=== PATIENT | male | born 1940 | race Caucasian/White ===

== ENCOUNTER → 2020-04-23 | Outpatient (CLI) | payer BC ==
[2020-02-10 11:40] VITALS: BP 163/79
[~2020-04-23] MED LIST: AMLO5TAB10 PO; TAMS0.4C97 PO
--- NOTE | 2020-04-23 11:49 | RAD ---
MR#: [id number] Date of Study: 04/23/2020 Ordering Physician: MAY FINN, Referring Physician: CLEVELAND ARELLANO Tech: RT Ryann (R) (N) APPROVED REPORT Test Type: Exercise Stress Nurse/Tech: Claudia GROSS Test Indications: HTN, CP Cardiac History: HTN, See EMR Medications: ASA daily, See EMR Medical History: See EMR Resting ECG: SR Resting Heart Rate: 58 bpm Resting Blood Pressure: 147/77mmHg Pretest Chest Pain: No chest pain Nurse/Tech Notes Lungs with fine crackles in the left upper lobe, other mckeon lungs CTA. Heart tones regular. Consent: The procedure was explained to the patient in lay terms. Informed consent was witnessed. Beau eout was entered into [facility] [employer]. History and Stress Test performed by [facility] Stress Symptoms Dyspnea POST EXERCISE Reason for Termination: Reached target heart rate Target HR: Yes Max HR: 132 bpm 111% of Maximum Predicted HR: 120 bpm Exercise duration: 3:37 min:sec, 2 Stage Exercise capacity: 7.0METs Max Blood Pressure: 178/77mmHg Blood Pressure response to exercise: Normal blood pressure response during stress. Heart Rate response to exercise: wnl Chest Pain: No. Arrhythmia: No. ST Change: No. INTERPRETATION Stress EKG Conclusion: Baseline EKG showed sinus rhythm. No ischemic changes at peak stress. No arr hythmias. Imaging Protocol IMAGE PROTOCOL: Rest Tc-99m/stress Tc-99m 1 day Rest: Stress: Viability: Radiopharm.Tc99m EznovxstoQs60y Sestamibi Akjm17fLr 31.6mCi Duration 15min. 10min. Img Date 04/23/2020 04/23/2020 Inj-Img [id number]. 60min. Rest Admin Site:IV - Right AntecubitalAdministrator:[facility] Stress Admin Site: IV - Right AntecubitalAdministrator: [facility] STRESS DATA End Diast. Vol.126.0mlAv. Heart Rate61.0bpm End Syst. Vol.41.0mlCO Index BSA0.0L/min Myocardial Lkdk479.0gEject. Jxzmqzph44.0% Stress Rates Pk. Fill Rate1.95EDV/secLVtime Pk. Fill 123.58msec Pk. Empty Rate3.14ESV/secLVtime Pk. Fviek434.03msec 1/3 Pk. Fill1.42EDV/sec Stress Scores Regional WT0.00Summed WT3.00 Regional WM0.00Summed WM1.00 Study quality was good. Left Ventricular size was Normal at Rest and Stress. Lung uptake was . Left Ventricular ejection fraction is 63%. The rest and stress images show normal perfusion, normal contraction and thickening. LV Perf. Quant 17 Seg. SSS1.00 17 Seg. SRS1.00 17 Seg. SDS1.00 Stress Defect Extent (% LAD)0.00Rest Defect Extent (% LAD)0.00Rev. Defect Extent (% LAD)0.00 Stress Defect Extent (% LCX) 0.00Rest Defect Extent (% LCX)6.30Rev. Defect Extent (% LCX)0.00 Stress Defect Extent (% RCA)0.00Rest Defect Extent (% RCA)0.00Rev. Defect Extent (% RCA)0.00 Stress Defect Extent (% FREDERICK)0.00Rest Defect Extent (% FREDERICK)2.40Rev. Defect Extent (% FREDERICK)0.00 Conclusion 1. Treadmill exercise cardioisotope stress test did not show any evidence of ischemia or infarct. 2. Normal left ventricular systolic function with ejection fraction calculated at 63%. 3. Patient had poor exercise tolerance. Low risk for cardiac events. Signed by : Yonatan Walton, Electronically Approved : 04/23/2020 11:48:43
== END | disposition home or self-care (01) ==
LOC: NM 08:06
PROVIDERS: ATTEND Internal Medicine Cardiovascular Disease
DX: I10 Essential (primary) hypertension (principal); R07.9 Chest pain, unspecified
CPT/HCPCS: 78452; 93017; A9500

== ENCOUNTER 2020-12-15 07:26 | Emergency (ER) | payer BC ==
[~2020-12-15] VITALS: Ht 180.3 cm; Wt 90.9 kg
[~2020-12-15 07:26] MED LIST changes: +AMLO-186 PO; -AMLO5TAB10 PO
--- NOTE | 2020-12-15 07:54 | PHYS DOC ---
Past Medical History Past Medical History: Cancer, Hypertension Additional Past Medical Histor: BPH Past Surgical History: Appendectomy, Tonsillectomy Additional Past Surgical Histo: skin cancer graft to nose Smoking Status: Former Smoker Alcohol Use: None Drug Use: None General Adult EDM: Chief Complaint: UPPER EXTREMITY PAIN HPI: HPI: Patient is a 80 year old male who presented to ER for evaluation of left elbow pain for 3 days. Patient denies any injury. Patient denies any cough or fever, no nausea vomiting. Patient also said he had a brief twist of chest pain but did not last long. Patient denies any abdominal pain. Patient denies any history of heart problem, denies any history of blood clot disorder. Patient is a former smoker. Patient has history of hypertension. Patient was evaluated here last year for chest pain, had a negative stress test done on April 2020. Patient also complained of right leg swelling for 1 month. The report of the nuclear stress test: Conclusion 1. Treadmill exercise cardioisotope stress test did not show any evidence of ischemia or infarct. 2. Normal left ventricular systolic function with ejection fraction calculated at 63%. 3. Patient had poor exercise tolerance. Low risk for cardiac events. Signed by : Amara Walton, Electronically Approved : 04/23/2020 11:48:43 DICTATED and SIGNED BY: AMARA WALTON MD DATE: 04/23/20 1031 Review of Systems: Review of Systems: Constitutional: Denies fever or chills. [] Eyes: Denies change in visual acuity. [] HENT: Denies nasal congestion or sore throat. [] Respiratory: Denies cough or shortness of breath. [] Cardiovascular: Positive for chest pain, right leg swelling. GI: Denies abdominal pain, nausea, vomiting, bloody stools or diarrhea. [] : Denies dysuria. [] Musculoskeletal: Denies back pain , positive for left elbow pain Integument: Denies rash. [] Neurologic: Denies headache, focal weakness or sensory changes. [] Endocrine: Denies polyuria or polydipsia. [] Lymphatic: Denies swollen glands. [] Psychiatric: Denies depression or anxiety. [] Heart Score: HEART Score for Chest Pain: HEART Score for Chest Pain Response (Comments) Value History Slighlty/Non-Suspicious 0 Age > 65 2 Risk Factors 1 or 2 Risk Factors 1 Troponin < Normal Limit 0 Total 3 Risk Factors: Risk Factors: DM, Current or recent (<one month) smoker, HTN, HLP, family history of CAD, obesity. Risk Scores: Score 0 - 3: 2.5% MACE over next 6 weeks - Discharge Home Score 4 - 6: 20.3% MACE over next 6 weeks - Admit for Clinical Observation Score 7 - 10: 72.7% MACE over next 6 weeks - Early Invasive Strategies Allergies: Allergies: Allergies Coded Allergies Type Severity Reaction Last Updated Verified No Known Drug Allergies 02/10/20 No Physical Exam: PE: Constitutional: Well developed, well nourished, no acute distress, non-toxic appearance. [] HENT: Normocephalic, atraumatic, bilateral external ears normal, oropharynx moist, no oral exudates, nose normal. [] Eyes: PERRLA, EOMI, conjunctiva normal, no discharge. [] Neck: Normal range of motion, no tenderness, supple, no stridor. [] Cardiovascular:Heart rate regular rhythm, no murmur [] Lungs & Thorax: Bilateral breath sounds clear to auscultation [] Abdomen: Bowel sounds normal, soft, no tenderness, no masses, no pulsatile masses. [] Skin: Warm, dry, no erythema, no rash. [] Back: No tenderness, no CVA tenderness. [] Extremities: The entire right leg is swollen, edematous, tender to palpation, pitting edema 2. Left elbow with full range of motion, hurt with certain movement. Neurologic: Alert and oriented X 3, normal motor function, normal sensory function, no focal deficits noted. [] Psychologic: Affect normal, judgement normal, mood normal. [] Current Patient Data: Labs: Laboratory Tests Test 12/15/20 07:55 White Blood Count 4.7 x10^3/uL Red Blood Count 4.75 x10^6/uL Hemoglobin 15.3 g/dL Hematocrit 44.5 % Mean Corpuscular Volume 94 fL Mean Corpuscular Hemoglobin 32 pg Mean Corpuscular Hemoglobin Concent 34 g/dL Red Cell Distribution Width 13.0 % Platelet Count 207 x10^3/uL Neutrophils (%) (Auto) 75 % Lymphocytes (%) (Auto) 16 % Monocytes (%) (Auto) 6 % Eosinophils (%) (Auto) 3 % Basophils (%) (Auto) 1 % Neutrophils # (Auto) 3.5 x10^3/uL Lymphocytes # (Auto) 0.7 x10^3/uL Monocytes # (Auto) 0.3 x10^3/uL Eosinophils # (Auto) 0.1 x10^3/uL Basophils # (Auto) 0.0 x10^3/uL Sodium Level 139 mmol/L Potassium Level 3.7 mmol/L Chloride Level 103 mmol/L Carbon Dioxide Level 26 mmol/L Anion Gap 10 Blood Urea Nitrogen 28 mg/dL Creatinine 0.8 mg/dL Estimated GFR (Cockcroft-Gault) 93.3 BUN/Creatinine Ratio 35 Glucose Level 162 mg/dL Calcium Level 9.1 mg/dL Magnesium Level 2.2 mg/dL Total Bilirubin 1.1 mg/dL Aspartate Amino Transf (AST/SGOT) 22 U/L Alanine Aminotransferase (ALT/SGPT) 29 U/L Alkaline Phosphatase 79 U/L Troponin I Quantitative < 0.017 ng/mL RA-Xmq-V-Type Natriuretic Peptide 49 pg/mL Total Protein 6.9 g/dL Albumin 3.6 g/dL Albumin/Globulin Ratio 1.1 Lipase 49 U/L Vital Signs: Vital Signs Date Time Temp Pulse Resp B/P (MAP) Pulse Ox O2 Delivery O2 Flow Rate FiO2 12/15/20 07:38 97.9 80 18 140/71 (94) 96 Room Air 97.9 EKG: EKG: EKG was done at 740, heart rate of 77 bpm, sinus rhythm, no ST segment elevation Radiology/Procedures: Radiology/Procedures: [][facility] [address] [place] [address] IMAGING REPORT Signed PATIENT: CELIO ELLIOTT ACCOUNT: [id number] : 1940 LOCATION: ER AGE: 80 SEX: M EXAM STATUS: REG ER ORD. PHYSICIAN: ARUN HOGAN DO REASON: right leg swelling for 1 month PROCEDURE: VENOUS LOWER EXTREMITY RIGHT Exam: US DPLX VENOUS EXTREMITY LOWER RT Indication: right leg swelling for 1 month Technique: Color-flow and pulsed wave duplex ultrasound with compression of venous structures of the right lower extremity. Comparison: None Available. Findings: Duplex ultrasound with compression of the deep venous structures of the right lower extremity from the common femoral vein through the popliteal vein is negative for DVT. The posterior tibial and peroneal veins are segmentally visualized and patent where seen. Normal venous waveforms and augmentation are noted throughout. Impression: No evidence for DVT in the right lower extremity. Electronically signed by: Freda Herrera MD (12/15/2020 8:29 AM) [id number] DICTATED and SIGNED BY: FREDA HERRERA MD DATE: 12/15/20 [id number] [facility] [address] [place] [address] IMAGING REPORT Signed PATIENT: CELIO ELLIOTT ACCOUNT: [id number] : 1940 LOCATION: ER AGE: 80 SEX: M EXAM STATUS: REG ER ORD. PHYSICIAN: ARUN HOGAN DO REASON: chest pain PROCEDURE: PORTABLE CHEST 1V Exam performed: One view chest. Indication: Reason: chest pain / Spl. Instructions: / History: Date of Service: 12/15/2020 7:53 AM Comparison: One view chest from 02/10/2020. Single AP upright portable view chest findings: Cardiomediastinal silhouette is stable. Pulmonary vascularity is unremarkable. No acute infiltrates, effusion or pneumothorax is detected. The bony structures are normal. Impression: No acute cardiopulmonary process is detected. Electronically signed by: Marguerite Us MD (12/15/2020 8:06 AM) [id number] DICTATED and SIGNED BY: MARGUERITE US MD DATE: 12/15/20 [id number] 0 Course & Med Decision Making: Course & Med Decision Making Pertinent Labs and Imaging studies reviewed. (See chart for details) Patient is a 80-year-old male who presented to ER due to left elbow pain, some brief episodes of chest pain that lasted for few seconds 3 days ago. He denies any injury. He also has swelling to the right leg for 1 month. Work-up in ER did not show any acute problem. Patient had a negative nuclear stress test in April of last year. The pain in his left elbow probably arthritis Dragon Disclaimer: Dragon Disclaimer: This electronic medical record was generated, in whole or in part, using a voice recognition dictation system. Departure Departure Impression: Primary Impression: Arthritis of left elbow Disposition: DC HOME SELF CARE/HOMELESS Condition: STABLE Referrals: NAKIA ARREOLA MD (PCP) Follow up with your doctor as needed next week Patient Instructions: Arthritis, Nonspecific Additional Instructions: Thank you for visiting our Emergency Department. We appreciate you trusting us with your care. If any additional problems come up don't hesitate to return to visit us. Please follow up with your primary care provider so they can plan additional care if needed and know about the problem that you had. If symptoms worsen come back to the Emergency Department. Any concerning symptoms that start such as chest pain, shortness of air, weakness or numbness on one side of the body, running high fevers or any other concerning symptoms return to the ER. ARUN HOGAN DO Dec 15, 2020 07:54
[2020-12-15 08:05] LABS: BASO % 1 % (0-3); EOS # 0.1 x10^3/uL (0.0-0.7); EOS % 3 % (0-3); HEMATOCRIT 44.5 % (39.0-53.0); HEMOGLOBIN 15.3 g/dL (13.0-17.5); LYMPH # 0.7 x10^3/uL (1.0-4.8); LYMPH % 16 % (24-48); MEAN CORPUSCULAR HEMOGLOBIN 32 pg (25-35); MEAN CORPUSCULAR HGB CONC 34 g/dL (31-37); MEAN CORPUSCULAR VOLUME 94 fL (79-100); MONO # 0.3 x10^3/uL (0.0-1.1); MONO % 6 % (0-9); NEUT # 3.5 x10^3/uL (1.8-7.7); NEUT % 75 % (31-73); PLATELET COUNT 207 x10^3/uL (140-400); RED BLOOD COUNT 4.75 x10^6/uL (4.30-5.70); WHITE BLOOD COUNT 4.7 x10^3/uL (4.0-11.0)
--- NOTE | 2020-12-15 08:08 | RAD ---
Exam performed: One view chest. Indication: Reason: chest pain / Spl. Instructions: / History: Date of Service: 12/15/2020 7:53 AM Comparison: One view chest from 02/10/2020. Single AP upright portable view chest findings: Cardiomediastinal silhouette is stable. Pulmonary vascularity is unremarkable. No acute infiltrates, effusion or pneumothorax is detected. The bony structures are normal. Impression: No acute cardiopulmonary process is detected. Electronically signed by: Marguerite Us MD (12/15/2020 8:06 AM) [id number]
[2020-12-15 08:13] LABS: CALCIUM 9.1 mg/dL (8.5-10.1); CREATININE 0.8 mg/dL (0.7-1.3); GFR 93.3; POTASSIUM 3.7 mmol/L (3.5-5.1)
[2020-12-15 08:19] LABS: ALBUMIN 3.6 g/dL (3.4-5.0); ALBUMIN/GLOBULIN RATIO 1.1 (1.0-1.7); MAGNESIUM 2.2 mg/dL (1.8-2.4); TOTAL BILIRUBIN 1.1 mg/dL (0.2-1.0); TOTAL PROTEIN 6.9 g/dL (6.4-8.2)
--- NOTE | 2020-12-15 08:31 | RAD ---
Exam: US DPLX VENOUS EXTREMITY LOWER RT Indication: right leg swelling for 1 month Technique: Color-flow and pulsed wave duplex ultrasound with compression of venous structures of th e right lower extremity. Comparison: None Available. Findings: Duplex ultrasound with compression of the deep venous structures of the right lower extremi ty from the common femoral vein through the popliteal vein is negative for DVT. The posterior tibial and peroneal veins are segmentally visualized and patent where seen. Normal venous waveforms and augm entation are noted throughout. Impression: No evidence for DVT in the right lower extremity. Electronically signed by: Garrett Herrera MD (12/15/2020 8:29 AM) [id number]
--- NOTE | 2020-12-15 08:54 | EKG ---
[facility] [address] [place] [address] Test Date: 2020-12-15 Test Time: 07:39:16 Pat Name: CELIO SAMUELN Department: Room: Gender: M Personal Injury Law Specialist: : 1940 Requested By: ARUN HOGAN Order Number: [id number] Reading MD: Measurements Intervals [place] Rate: 77 P: 28 [place]: 154 QRS: -3 QRSD: 96 T: 35 QT: 370 QTc: 420 Interpretive Statements SINUS RHYTHM LEFTWARD AXIS OTHERWISE NORMAL ECG RI6.01 No previous ECG available for comparison
[2020-12-15 10:41] VITALS: BP 135/63
== END 2020-12-15 11:12 | disposition home or self-care (01) ==
LOC: ER 07:26
DX: M19.022 Primary osteoarthritis, left elbow (principal); R07.89 Other chest pain; R22.41 Localized swelling, mass and lump, right lower limb; I10 Essential (primary) hypertension; Z87.891 Personal history of nicotine dependence
CPT/HCPCS: 36415; 71045; 80053; 83690; 83735; 83880; 84484; 85025; 93005; 93971; 99285-25

== ENCOUNTER 2021-06-27 10:14 | Emergency (ER) | payer BC ==
[~2021-06-27] VITALS: Ht 176.5 cm; Wt 83.6 kg
[2021-06-27] MEDS ORDERED: IV NORMAL SALINE 1000ML BAG 1,000 ML IV ONE (10:45)
--- NOTE | 2021-06-27 10:58 | EKG ---
[facility] [address] [place] [address] Test Date: 2021-06-27 Test Time: 10:43:57 Pat Name: CELIO ELLIOTT Department: Room: Gender: M Cement Mason: : 1940 Requested By: MANJULA BUCKLEY Order Number: [id number] Reading MD: Measurements Intervals [place] Rate: 86 P: 1 [place]: 144 QRS: 0 QRSD: 90 T: 22 QT: 366 QTc: 441 Interpretive Statements SINUS RHYTHM LEFTWARD AXIS QRS(T) CONTOUR ABNORMALITY CONSISTENT WITH ANTEROSEPTAL INFARCT PROBABLY OLD ABNORMAL ECG RI6.02 No previous ECG available for comparison
[2021-06-27 11:08] LABS: BASO % 0 % (0-3); EOS % 0 % (0-3); HEMATOCRIT 44.3 % (39.0-53.0); HEMOGLOBIN 15.7 g/dL (13.0-17.5); LYMPH # 0.5 x10^3/uL (1.0-4.8); LYMPH % 14 % (24-48); MEAN CORPUSCULAR HEMOGLOBIN 33 pg (25-35); MEAN CORPUSCULAR HGB CONC 35 g/dL (31-37); MEAN CORPUSCULAR VOLUME 92 fL (79-100); MONO # 0.3 x10^3/uL (0.0-1.1); MONO % 8 % (0-9); NEUT # 2.8 x10^3/uL (1.8-7.7); NEUT % 78 % (31-73); PLATELET COUNT 114 x10^3/uL (140-400); RED BLOOD COUNT 4.83 x10^6/uL (4.30-5.70); RED CELL DISTRIBUTION WIDTH 13.5 % (11.5-14.5); WHITE BLOOD COUNT 3.7 x10^3/uL (4.0-11.0)
--- NOTE | 2021-06-27 11:08 | PHYS DOC ---
Past Medical History Past Medical History: Cancer, Hypertension Additional Past Medical Histor: BPH (MANJULA BUCKLEY APRN) Past Surgical History: Appendectomy, Tonsillectomy Additional Past Surgical Histo: skin cancer graft to nose,skin cancer removal (MANJULA BUCKLEY APRN) Smoking Status: Former Smoker Alcohol Use: None Drug Use: None (MANJULA BUCKLEY APRN) General Adult EDM: Chief Complaint: FLU SYMPTOM HPI: HPI: Patient is a 80 male presents to the emergency department complaining of a 20 pound weight loss over the past 2 weeks while being diagnosed with the COVID-19 virus. Patient reports he feels exhausted, denies chest pain, denies shortness of breath, denies fever or chills at home, denies nausea, vomiting, diarrhea or constipation. Patient reports his last normal BM was yesterday, reports he has not been drinking or eating as much because he has not been feeling well related to his COVID-19 virus. Patient reports he does not feel bad enough to come to the hospital however his daughter was worried and drove him here for evaluation. Patient denies allergies to medications, reports he takes a blood pressure medication at home. Sees Dr. Lazaro for primary care. Patient reports he has not received the COVID-19 vaccine series. Patient denies any other physical complaints or physical concerns. (MANJULA BUCKLEY APRN) Review of Systems: Review of Systems: 14 body systems of review of systems have been reviewed. See HPI for pertinent positives and negative responses, otherwise all other systems are negative, nonpertinent or noncontributory. Constitutional: Negative except as outlined in HPI above. Skin: Negative except as outlined in HPI above. Eyes: Negative except as outlined in HPI above. HENT: Negative except as outlined in HPI above. Respiratory: Negative except as outlined in HPI above. Cardiovascular: Negative except as outlined in HPI above. GI: Negative except as outlined in HPI above. : Negative except as outlined in HPI above. Musculoskeletal: Negative except as outlined in HPI above. Integument: Negative except as outlined in HPI above. Neurologic: Negative except as outlined in HPI above. Endocrine: Negative except as outlined in HPI above. Lymphatic: Negative except as outlined in HPI above. Psychiatric: Negative except as outlined in HPI above. (MANJULA BUCKLEY APRN) Heart Score: C/O Chest Pain: No Risk Factors: Risk Factors: DM, Current or recent (<one month) smoker, HTN, HLP, family history of CAD, obesity. Risk Scores: Score 0 - 3: 2.5% MACE over next 6 weeks - Discharge Home Score 4 - 6: 20.3% MACE over next 6 weeks - Admit for Clinical Observation Score 7 - 10: 72.7% MACE over next 6 weeks - Early Invasive Strategies (MANJULA BUCKLEY APRN) Current Medications: Current Medications Medications (Trade) Dose Ordered Sig/Maryam Start Time Stop Time Status Last Admin Dose Admin Sodium Chloride 1,000 ml @ 1,000 mls/hr 1X ONCE 06/27/21 10:45 06/27/21 11:44 06/27/21 10:51 1,000 MLS/HR (MANJULA BUCKLEY APRN) Allergies: Allergies: Allergies Coded Allergies Type Severity Reaction Last Updated Verified No Known Drug Allergies 02/10/20 No (MANJULA BUCKLEY APRN) Physical Exam: PE: Constitutional: Well developed, well nourished, no acute distress, non-toxic appearance. 80-year-old male in no apparent distress. HENT: Normocephalic, atraumatic. Oropharynx sticky, no deep tissue infectious process appreciated, patient speaking in normal voice tones. Eyes: Conjunctiva normal, no discharge. Neck: Normal range of motion, no stridor. Cardiovascular: No cyanosis appreciated, distal cap refill less than 2 seconds. Lungs & Thorax: Patient is in no respiratory distress, no audible adventitious lung sounds appreciated. Lung sounds clear to auscultate all lung thayer. Abdomen: Nontender, no abnormalities noted. Skin: Warm, dry, no erythema, no rash. Skin turgor brisk. Back: No tenderness, no deformities. Extremities: No tenderness, no cyanosis, no clubbing, ROM intact, no edema. Neurologic: Alert and oriented X 3, normal motor function, normal sensory function, no focal deficits noted. Psychologic: Affect normal, judgement normal, mood normal. (MANJULA BUCKLEY APRN) Current Patient Data: Vital Signs: Vital Signs Date Time Temp Pulse Resp B/P (MAP) Pulse Ox O2 Delivery O2 Flow Rate FiO2 06/27/21 10:35 98.6 88 20 154/70 (87) 95 Room Air 98.6 (MANJULA BUCKLEY APRN) EKG: EKG: EKG performed at 1043 by ED nursing staff shows a normal sinus rhythm without ectopy heart rate 86 bpm, [place] interval 0.144, QTc interval 0.441, no acute STEMI, no ACS, no acute ischemia appreciated, EKG interpreted by ED attending physician Dr. Fischer. (MANJULA BUCKLEY APRN) Radiology/Procedures: Radiology/Procedures: PATIENT: CELIO ELLIOTT ACCOUNT: [id number] : 1940 LOCATION: ER AGE: 80 SEX: M EXAM STATUS: REG ER ORD. PHYSICIAN: MANJULA BUCKLEY APRN REASON: Weakness, Covid positive PROCEDURE: CHEST AP ONLY EXAM: CHEST 1 VIEW History: Weakness, covid positive COMPARISON: 12/15/2020 TECHNIQUE: Single portable radiograph of the chest FINDINGS: The cardiac silhouette is unremarkable. Minimal bibasilar lung atelectasis or infiltrates. The costophrenic sulci are clear and well demarcated. IMPRESSION: Minimal bibasilar lung atelectasis or infiltrates Electronically signed by: Tao Mcfarland MD (06/27/2021 11:18 AM) [id number] (MANJULA BUCKLEY APRN) Course & Med Decision Making: Course & Med Decision Making Pertinent Labs and Imaging studies reviewed. (See chart for details) 80-year-old male, vital signs reviewed, presents to the emergency department with chief complaint of feeling weak since being diagnosed with a COVID-19 virus 2 weeks ago. Patient also reports a 20 pound weight loss. Patient reports his daughter brought him here for evaluation even though he does not feel bad enough to come to the hospital. Physical examination concerning for mild dehydration, will order cardiorespiratory work-up, reorder COVID-19 virus labs. Urinalysis assay. 1 L normal saline IV The patient's urine was not infected, EKG and cardiac labs unremarkable, patient's chest x-ray nonconcerning for acute respiratory process, patient's labs unremarkable. Patient's rapid COVID-19 test positive. Discussed with patient findings, continue to self quarantine at home, strict follow-up with primary care regarding weight loss. Patient is amenable to ED discharge planning. Discussed with the patient all findings and diagnostic testing as well as the need to follow-up with their primary care provider for further evaluation and treatment or return to the ED if any new or worsening symptoms. Strict return precautions were also discussed at length, the patient voiced understanding and agreement with the discharge planning. The patient was nontoxic in appearance, in no apparent distress, and hemodynamically stable at the time of disposition. (MANJULA BUCKLEY APRN) Course & Med Decision Making I have reviewed and agree with all pertinent clinical information above including history, exam, and recommendations. Arelis Fischer DO (ARELIS FISCHER DO) Sanam Disclaimer: Sanam Disclaimer: This electronic medical record was generated, in whole or in part, using a voice recognition dictation system. (MANJULA BUCKLEY APRN) Departure Departure Impression: Primary Impression: COVID-19 virus infection Additional Impression: Weight loss Disposition: 01 HOME / SELF CARE / HOMELESS Condition: GOOD Referrals: NAKIA LAZARO MD (PCP) Additional Instructions: You were seen today in the emergency department for ongoing symptoms related to your COVID-19 virus infection. You would also indicated that you have lost 20 pounds over the past 2 weeks. An extensive cardiorespiratory work-up was performed, there were no concerning findings for heart attack or pneumonia, your urine was not infected. A COVID-19 virus test was performed today, the test ind icates you still have the virus infection. Please continue to quarantine at home. As we discussed at length, please keep your fluid intake elevated, please follow-up with your primary care physician Dr. Lazaro related to your weight loss. Please return to the emergency department for worsening symptoms or other concerns. Thank you for visiting our Emergency Department. It was a pleasure taking care of you today in the emergency department and we appreciate you trusting us with your care. If any additional problems come up don't hesitate to return to visit us. Please follow up with your primary care provider so they can plan additional care if needed and know about the problem that you had. If symptoms worsen come back to the Emergency Department. Any concerning symptoms that start such as chest pain, shortness of air, weakness or numbness on one side of the body, running high fevers or any other concerning symptoms return to the ER. EMERGENCY DEPARTMENT GENERAL DISCHARGE INSTRUCTIONS Thank you for coming to [facility] Emergency Department (ED) today and trusting us with you care. We trust that you had a positive experience in our Emergency Department. If you wish to speak to the department management, you may call the Director at [phone]. YOUR FOLLOW UP INSTRUCTIONS ARE FOLLOWS: 1. Do you have a private Doctor? If you do not have a private doctor, please ask for a resource list of physicians or clinics that may be able to assist you with follow up care. 2. The Emergency Physicain has interpreted your x-rays. The X-Ray specialist will also review them. If there is a change in the findings, you will be notified in 48 hours when at all possible. 3. A lab test or culture has been done, your results will be reviewed and you will be notified if you need a change in treatment. ADDITIONAL INSTRUCTIONS AND INFORMATION: 1. Your care today has been supervised by a physician who is specially trained in emergency care. Many problems require more than one evaluation for a complete diagnosis and treatment. We recommend that you schedule your follow up appointment as recommended to ensure complete treatment of you illness or injury. If you are unable to obtain follow up care and continue to have a problem, or if your condition worsens, we recommend that you return to the ED. 2. We are not able to safely determine your condition over the phone nor are we able to give sound medical advice over the phone. For these safety reasons, if you call for medical advice we will ask you to come to the ED for further evaluation. 3. If you have any questions regarding these discharge instructions please call the ED at [phone]. SAFETY INFORMATION: In the interest of safety, wellness, and injury prevention; we encourage you to wear your sealbelt, if you smoke; quite smoking, and we encourage family to use a protective helmet for bicycling and other sporting events that present an increased risk for head injury. IF YOUR SYMPTOMS WORSEN OR NEW SYMPTOMS DEVELOP, OR YOU HAVE CONCERNS ABOUT YOUR CONDITION; OR IF YOUR CONDITION WORSENS WHILE YOU ARE WAITING FOR YOUR FOLLOW UP APPOINTMENT; EITHER CONTACT YOUR PRIMARY CARE DOCTOR, THE PHYSICIAN WHOSE NAME AND NUMBER YOU WERE GIVEN, OR RETURN TO THE ED IMMEDIATELY. MANJULA BUCKLEY APRN Jun 27, 2021 11:08 ARELIS FISCHER DO Jun 27, 2021 15:21
[2021-06-27 11:15] LABS: CALCIUM 8.1 mg/dL (8.5-10.1); CREATININE 1.1 mg/dL (0.7-1.3); GFR 64.6; POTASSIUM 3.6 mmol/L (3.5-5.1)
--- NOTE | 2021-06-27 11:20 | RAD ---
EXAM: CHEST 1 VIEW History: Weakness, covid positive COMPARISON: 12/15/2020 TECHNIQUE: Single portable radiograph of the chest FINDINGS: The cardiac silhouette is unremarkable. Minimal bibasilar lung atelectasis or infiltrates. The costophrenic sulci are clear and well demarcated. IMPRESSION: Minimal bibasilar lung atelectasis or infiltrates Electronically signed by: Tao Mcfarland MD (06/27/2021 11:18 AM) [id number]
[2021-06-27 11:30] LABS: ALBUMIN 3.3 g/dL (3.4-5.0); ALBUMIN/GLOBULIN RATIO 0.9 (1.0-1.7); TOTAL BILIRUBIN 1.1 mg/dL (0.2-1.0); TOTAL PROTEIN 6.9 g/dL (6.4-8.2)
[2021-06-27 12:21] LABS: BILIRUBIN,URINE NEGATIVE (NEG); CLARITY,URINE CLEAR; COLOR,URINE YELLOW; NITRITE,URINE NEGATIVE (NEG); PH,URINE 5.5 (<5.0-8.0); PROTEIN,URINE 30 mg/dL (NEG-TRACE)
[2021-06-27 12:42] LABS: BACTERIA,URINE 0 /HPF (0-FEW); RBC,URINE 0 /HPF (0-2); WBC,URINE OCC /HPF (0-4)
[2021-06-27 14:31] VITALS: BP 121/60
--- NOTE | 2021-07-01 12:33 | EKG ---
[facility] [address] [place] [address] Test Date: 2021-07-01 Test Time: 08:57:23 Pat Name: CELIO HYLTONLON Department: Room: Gender: M Floorhand: : 1940 Requested By: ARUN HOGAN Order Number: [id number] Reading MD: Measurements Intervals [place] Rate: 95 P: 2 [place]: 136 QRS: 6 QRSD: 88 T: 15 QT: 366 QTc: 463 Interpretive Statements No previous ECG available for comparison
[2021-07-01] MEDS ORDERED: AMLO-186 PO (13:50)
[2021-07-01] MEDS ORDERED: TAMS0.4C97 PO (13:50)
[2021-07-01] MEDS ORDERED: ATOR40TA59 PO (13:50)
[2021-07-01] MEDS ORDERED: METF500T16 PO (13:50)
[2021-07-01] MEDS ORDERED: POTA10TA12 PO (13:50)
[2021-07-01] MEDS ORDERED: FURO20TA3 PO (13:50)
== END 2021-06-27 14:47 | disposition home or self-care (01) ==
LOC: ER 10:14
DX: U07.1 COVID-19 (principal); R63.4 Abnormal weight loss; I10 Essential (primary) hypertension; Z87.891 Personal history of nicotine dependence
CPT/HCPCS: 36415; 71045; 80053; 81001; 82553; 83605; 84484; 85025; 87040; 87426; 93005; 96360; 99285; J7030